=== PATIENT | female | born 1950 | race Caucasian/White ===

== ENCOUNTER → 2016-03-13 | Outpatient (CLI) | payer MEDICARE, OTHER ==
[~2016-03-13] MED LIST: BARIUM SULFATE 40% 148 GM PWD PO ONE
--- NOTE | 2016-03-13 11:56 | RAD ---
EXAM: Video swallow evaluation. HISTORY: Dysphagia. TECHNIQUE: Fluoroscopic imaging was performed in coordination with the Department of speech pathology during the oral administration of contrast of varying consistencies. 9 fluoroscopic images were obtained. The total fluoroscopy time was 2.1 minutes. COMPARISON: None. FINDINGS: There is flash penetration following multiple swallowing attempts with thin barium consistency. This is increased with large boluses. There is significant residual with pudding and solid consistencies which partially clears with thin barium consistency. No jassi aspiration is seen. IMPRESSION: Flash penetration with thin barium consistency, primarily with large boluses. No aspiration is seen. Please refer to the separate report by the department of speech pathology for clinical recommendations.
== END | disposition home or self-care (01) ==
LOC: RAD 10:00
PROVIDERS: ATTEND Family Medicine
DX: R13.10 Dysphagia, unspecified (principal)
CPT/HCPCS: 74230; 92611; G8996; G8997; G8998

== ENCOUNTER → 2016-03-13 | Outpatient (CLI) | payer MEDICARE ==
[~2016-03-13] MED LIST changes: -BARIUM SULFATE 40% 148 GM PWD PO ONE; +BARIUM SULFATE 60% 355 ML SUSP PO ONE; +BARIUM SULFATE 98% 135 ML SUSP PO ONE; +SIMETHICONE/SOD BICARB/CITRIC ACID PACKET. PO ONE
--- NOTE | 2016-03-13 11:54 | RAD ---
EXAM: Barium esophagram. HISTORY: Dysphagia. TECHNIQUE: Fluoroscopic imaging was performed in multiple positions and obliquities during the oral administration of thin barium contrast. Fluoroscopic images were obtained. The total fluoroscopy time was 0.8 minutes. COMPARISON: None. FINDINGS: There is no evidence of aspiration. There are extensive esophageal tertiary contractions throughout the exam. The esophagus is normal in caliber. No esophageal mucosal lesion is seen. There is no hiatal hernia. There is no significant gastric soft tissue reflux. There is no delay in transit beyond the gastroesophageal junction. IMPRESSION: 1. Extensive esophageal tertiary contractions. 2. Otherwise, unremarkable esophagram.
== END | disposition home or self-care (01) ==
LOC: RAD 08:00
PROVIDERS: ATTEND Physician Assistant Medical
DX: R13.10 Dysphagia, unspecified (principal)
CPT/HCPCS: 74220

== ENCOUNTER 2017-06-29 16:00 | Inpatient (IN) | payer MEDICARE, OTHER ==
[2017-06-29 16:27] LABS: ADD MAN DIFF? NO
[2017-06-29 16:33] LABS: BASO # 0.1 x10^3/uL (0.0-0.2); BASO % 1 % (0-3); EOS # 0.1 x10^3/uL (0.0-0.7); EOS % 1 % (0-3); HEMOGLOBIN 13.4 g/dL (12.0-15.5); LYMPH # 3.1 x10^3/uL (1.0-4.8); LYMPH % 27 % (24-48); MEAN CORPUSCULAR HEMOGLOBIN 29 pg (25-35); MEAN CORPUSCULAR HGB CONC 34 g/dL (31-37); MEAN CORPUSCULAR VOLUME 85 fL (79-100); MONO # 0.9 x10^3/uL (0.0-1.1); MONO % 8 % (0-9); NEUT # 7.4 x10^3uL (1.8-7.7); NEUT % 64 % (31-73); PLATELET COUNT 382 x10^3/uL (140-400); RED BLOOD COUNT 4.71 x10^6/uL (3.50-5.40); RED CELL DISTRIBUTION WIDTH 15.5 % (11.5-14.5); WHITE BLOOD COUNT 11.6 x10^3/uL (4.0-11.0)
[2017-06-29 16:41] LABS: PROTHROMBIN TIME PATIENT 12.3 SEC (11.7-14.0)
[2017-06-29 16:49] LABS: ANION GAP 12 (6-14); BLOOD UREA NITROGEN 13 mg/dL (7-20); CALCIUM 9.6 mg/dL (8.5-10.1); CARBON DIOXIDE 22 mmol/L (21-32); CHLORIDE 97 mmol/L (98-107); CREATININE 1.1 mg/dL (0.6-1.0); GFR 49.7; GLUCOSE 233 mg/dL (70-99); POTASSIUM 4.1 mmol/L (3.5-5.1); SODIUM 131 mmol/L (136-145)
[2017-06-29] MEDS: IPRATRPIUM/ALBUTEROL 0.5/2.5MG 3 ML NEBU. NEB (16:50)
[2017-06-29 16:52] LABS: ALBUMIN 3.6 g/dL (3.4-5.0); ALK PHOS 138 U/L (46-116); ALT (SGPT) 23 U/L (14-59); AST (SGOT) 28 U/L (15-37); DIRECT BILIRUBIN 0.1 mg/dL (0.0-0.2); MAGNESIUM 2.1 mg/dL (1.8-2.4); TOTAL BILIRUBIN 0.3 mg/dL (0.2-1.0); TOTAL PROTEIN 7.5 g/dL (6.4-8.2)
[2017-06-29 16:56] LABS: TROPONINI < 0.017 ng/mL (0.000-0.055)
[2017-06-29] MEDS: methylPREDNISolone SOD SUCC PF 125 MG/2 ML VIAL. IV (16:56)
[2017-06-29 16:59] LABS: CKMB MASS 2.6 ng/mL (0.0-3.6); CREATINE KINASE 267 U/L (26-192)
[2017-06-29 16:59] LABS: NT-PRO BNP 484 pg/mL (0-124)
[2017-06-29] MEDS: AZITHRMYCN 500MG IVPB FOR OMNI 250 ML IV (17:03)
[2017-06-29] MEDS ORDERED: ONDANSETRON PF 4 MG/2 ML VIAL. IV (18:00)
[2017-06-29 18:13] LABS: HEMOGLOBIN 12.1 g/dL (12.0-15.5)
[2017-06-29] MEDS: CLINDAMYCIN 600MG PREMIX 50 ML IV ×2 (18:40→21:59)
[2017-06-29 22:15] LABS: TROPONINI 0.024 ng/mL (0.000-0.055)
[2017-06-29 22:16] LABS: LACTIC ACID 2.9 mmol/L (0.4-2.0)
[2017-06-30] MEDS ORDERED: IPRATROPIUM BROMIDE 0.5 MG/2.5 ML NEBU. NEB (00:30)
[2017-06-30] MEDS ORDERED: ALBUTEROL SULFATE 2.5 MG/3 ML NEBU. NEB (00:30)
[2017-06-30] MEDS ORDERED: ACETAMINOPHEN 325 MG TABLET. PO (00:30)
[2017-06-30 00:34] LABS: TROPONINI 0.019 ng/mL (0.000-0.055)
[2017-06-30] MEDS: TAMSULOSIN 0.4 MG CAP.ER.24H. PO ×2 (00:52→21:36)
[2017-06-30] MEDS: PRIMIDONE 50 MG TABLET PO ×3 (00:52→21:37)
[2017-06-30] MEDS: traZODone 100 MG TABLET. PO ×2 (00:53→21:36)
[2017-06-30] MEDS: busPIRone 10 MG TABLET. PO ×3 (00:53→21:37)
[2017-06-30] MEDS: oxyCODONE IR 5 MG TABLET PO ×2 (00:54→21:37)
[2017-06-30 05:21] LABS: BASO % 0 % (0-3); EOS % 0 % (0-3); HEMATOCRIT 36.7 % (36.0-47.0); LYMPH # 0.3 x10^3/uL (1.0-4.8); LYMPH % 2 % (24-48); MEAN CORPUSCULAR HEMOGLOBIN 28 pg (25-35); MEAN CORPUSCULAR HGB CONC 33 g/dL (31-37); MEAN CORPUSCULAR VOLUME 86 fL (79-100); MONO # 0.2 x10^3/uL (0.0-1.1); MONO % 2 % (0-9); NEUT # 15.6 x10^3uL (1.8-7.7); NEUT % 96 % (31-73); PLATELET COUNT 343 x10^3/uL (140-400); RED BLOOD COUNT 4.28 x10^6/uL (3.50-5.40); RED CELL DISTRIBUTION WIDTH 15.3 % (11.5-14.5); WHITE BLOOD COUNT 16.2 x10^3/uL (4.0-11.0)
[2017-06-30 05:49] LABS: ANION GAP 14 (6-14); BLOOD UREA NITROGEN 15 mg/dL (7-20); CALCIUM 8.8 mg/dL (8.5-10.1); CARBON DIOXIDE 25 mmol/L (21-32); CHLORIDE 98 mmol/L (98-107); GFR 55.5; GLUCOSE 216 mg/dL (70-99); SODIUM 137 mmol/L (136-145)
[2017-06-30 05:51] LABS: ADD MAN DIFF? YES
[2017-06-30] MEDS: CLINDAMYCIN 600MG PREMIX 50 ML IV ×3 (06:48→21:37)
[2017-06-30 07:03] LABS: % BANDS 1 % (0-9); % LYMPHS 2 % (24-48); % SEGS 97 % (35-66); PLT ESTIMATE ADEQUATE (ADEQUATE)
[2017-06-30] MEDS: IPRATRPIUM/ALBUTEROL 0.5/2.5MG 3 ML NEBU. NEB ×4 (07:47→20:34)
[2017-06-30] MEDS: BUDESONIDE 0.5 MG/2 ML NEBU. NEB ×2 (07:47→20:34)
[2017-06-30] MEDS ORDERED: CETIRIZINE HCL 10 MG TABLET. PO (09:00)
[2017-06-30] MEDS: ASPIRIN 325 MG TABLET PO (09:01)
[2017-06-30] MEDS: ARIPiprazole 5 MG TABLET PO (09:01)
[2017-06-30] MEDS: MULTIVITAMIN with MINERAL TABLET. PO (09:01)
[2017-06-30] MEDS: RALOXIFENE 60 MG TABLET. PO (09:02)
[2017-06-30] MEDS: SERTRALINE 50 MG TABLET. PO (09:02)
[2017-06-30] MEDS: amLODIPine BESYLATE 10 MG TABLET PO (09:02)
[2017-06-30] MEDS: LACTOBACILLUS RHAMNOSUS GG 1 CAPSULE. PO ×2 (11:36→21:36)
[2017-06-30] MEDS: LEVOTHYROXINE 100 MCG TABLET PO (11:36)
[2017-06-30] MEDS ORDERED: NON FORMULARY ITEM (Melatonin 1 TAB) PO (21:00)
[2017-07-01 05:30] LABS: HEMATOCRIT 30.5 % (36.0-47.0); HEMOGLOBIN 10.3 g/dL (12.0-15.5); MEAN CORPUSCULAR HEMOGLOBIN 29 pg (25-35); MEAN CORPUSCULAR HGB CONC 34 g/dL (31-37); MEAN CORPUSCULAR VOLUME 85 fL (79-100); PLATELET COUNT 293 x10^3/uL (140-400); RED BLOOD COUNT 3.59 x10^6/uL (3.50-5.40); RED CELL DISTRIBUTION WIDTH 15.7 % (11.5-14.5); WHITE BLOOD COUNT 10.1 x10^3/uL (4.0-11.0)
[2017-07-01] MEDS: CLINDAMYCIN 600MG PREMIX 50 ML IV ×3 (05:36→20:39)
[2017-07-01] MEDS: LEVOTHYROXINE 100 MCG TABLET PO (05:37)
[2017-07-01 05:45] LABS: ANION GAP 9 (6-14); BLOOD UREA NITROGEN 22 mg/dL (7-20); CALCIUM 8.7 mg/dL (8.5-10.1); CARBON DIOXIDE 27 mmol/L (21-32); CHLORIDE 100 mmol/L (98-107); GFR 55.5; GLUCOSE 96 mg/dL (70-99); POTASSIUM 4.5 mmol/L (3.5-5.1); SODIUM 136 mmol/L (136-145)
[2017-07-01] MEDS: BUDESONIDE 0.5 MG/2 ML NEBU. NEB ×2 (07:14→20:22)
[2017-07-01] MEDS: IPRATRPIUM/ALBUTEROL 0.5/2.5MG 3 ML NEBU. NEB ×4 (07:14→20:22)
[2017-07-01] MEDS: amLODIPine BESYLATE 10 MG TABLET PO (09:00)
[2017-07-01] MEDS: ARIPiprazole 5 MG TABLET PO (09:20)
[2017-07-01] MEDS: SERTRALINE 50 MG TABLET. PO (09:20)
[2017-07-01] MEDS: MULTIVITAMIN with MINERAL TABLET. PO (09:20)
[2017-07-01] MEDS: RALOXIFENE 60 MG TABLET. PO (09:21)
[2017-07-01] MEDS: busPIRone 10 MG TABLET. PO ×2 (09:21→20:14)
[2017-07-01] MEDS: LACTOBACILLUS RHAMNOSUS GG 1 CAPSULE. PO ×2 (09:21→20:13)
[2017-07-01] MEDS: PRIMIDONE 50 MG TABLET PO ×2 (09:21→20:14)
[2017-07-01] MEDS: ASPIRIN 325 MG TABLET PO (09:21)
[2017-07-01 09:45] LABS: LACTIC ACID 1.4 mmol/L (0.4-2.0)
[2017-07-01] MEDS ORDERED: ALBUTEROL SULFATE 2.5 MG/3 ML NEBU. NEB (15:35)
[2017-07-01] MEDS: TAMSULOSIN 0.4 MG CAP.ER.24H. PO (20:13)
[2017-07-01] MEDS: traZODone 100 MG TABLET. PO (20:13)
[2017-07-01] MEDS: POLYETHYLENE GLYCOL 3350 17 GM PACKET. PO (20:14)
[2017-07-02] MEDS: CLINDAMYCIN 600MG PREMIX 50 ML IV (05:17)
[2017-07-02] MEDS: LEVOTHYROXINE 100 MCG TABLET PO (06:14)
[2017-07-02] MEDS: BUDESONIDE 0.5 MG/2 ML NEBU. NEB (07:43)
[2017-07-02] MEDS: IPRATRPIUM/ALBUTEROL 0.5/2.5MG 3 ML NEBU. NEB ×2 (07:43→11:22)
[2017-07-02] MEDS: SERTRALINE 50 MG TABLET. PO (08:54)
[2017-07-02] MEDS: ASPIRIN 325 MG TABLET PO (08:54)
[2017-07-02] MEDS: MULTIVITAMIN with MINERAL TABLET. PO (08:55)
[2017-07-02] MEDS: LACTOBACILLUS RHAMNOSUS GG 1 CAPSULE. PO (08:55)
[2017-07-02] MEDS: amLODIPine BESYLATE 10 MG TABLET PO (08:55)
[2017-07-02] MEDS: busPIRone 10 MG TABLET. PO (08:56)
[2017-07-02] MEDS: PRIMIDONE 50 MG TABLET PO (08:56)
[2017-07-02] MEDS: RALOXIFENE 60 MG TABLET. PO (08:56)
[2017-07-02] MEDS: ARIPiprazole 5 MG TABLET PO (08:56)
[2017-07-02] MEDS: CLINDAMYCIN HCL 150 MG CAPSULE. PO (13:14)
== END 2017-07-02 14:15 | DRG 177 ==
LOC: ER 16:00 → 2 NORTH 17:45
DX: J69.0 Pneumonitis due to inhalation of food and vomit (principal); J96.01 Acute respiratory failure with hypoxia; J44.1 Chronic obstructive pulmonary disease with (acute) exacerbation; F17.200 Nicotine dependence, unspecified, uncomplicated; E78.5 Hyperlipidemia, unspecified; E78.00 Pure hypercholesterolemia, unspecified; G20 Parkinson's disease; G25.81 Restless legs syndrome; M19.90 Unspecified osteoarthritis, unspecified site; I10 Essential (primary) hypertension; G89.4 Chronic pain syndrome; M81.0 Age-related osteoporosis without current pathological fracture; Z82.0 Family history of epilepsy and other diseases of the nervous system; Z91.81 History of falling
CPT/HCPCS: 36415; 71045; 71250; 80048; 80076; 82553; 83605; 83735; 83880; 84484; 85007; 85018; 85025; 85027; 85610; 92610-GN; 93005; 94618; 94640; 94760; 96365; 96366; 96375; 97116-GP; 97162-GP; 97530-GP; 99285; 99285-25; J0456; J2930; J3490; J7620; J7626